=== PATIENT | male | born 1945 | race Caucasian/White ===

== ENCOUNTER 2017-02-25 12:26 | Observation (INO) | payer MEDICARE, OTHER ==
[~2017-02-25 12:26] MED LIST: ACTONEL; ACTONEL35 MG; ACTOS45 MG; ACTOS45 MG PO; ALTACE5 MG; AVELOX400 MG PO; BABY ASPIRIN81 MG PO; BACTRIM 400-801 EAC1 PO; BACTRIM DS TAB1 EAC2 PO; CLINDAMYCIN; CLINDAMYCIN HC300 M2 PO; COREG25 MG; COREG3.125 MG; COREG6.25 MG; CULTURELLE1 EAC1 PO; DOXYCYCLINE HY100 M5 PO; GLIPIZIDE XL2.5 MG; GLUCOTROL XL2.5 MG PO; GLYBURIDE2.5 MG; HUMALOG KW200 UNIT/1 SC; HUMALOG100 U/ML SQ; HUMALOG100 UNITS/ SC; LANTUS100 U/ML SC; LANTUS100 UNITS/ SC; LEVAQUIN500 M1 PO; LISINOPRIL2.5 MG; LOW DOSE ASPIRI81 M1 PO; LOW DOSE ASPIRI81 M3 PO; LYRICA50 MG; PLAVIX75 MG; PRAVACHOL20 M1 PO; PRAVACHOL20 MG PO; PRENATAL-U CAPS1 CAP PO; PROAMATINE10 MG; RENAGEL800 MG; RENAL CAPS SOFTG1 M1 PO; RENVELA800 M1 PO; RENVELA800 MG PO; SENSIPAR30 M1 PO; SENSIPAR30 MG; SENSIPAR30 MG PO; SULFAMYLON60 GM TOP; TOUJEO SOL300 UNIT/1 SC; TRAMADOL HCL50 M2 PO
[2017-02-25] MEDS ORDERED: TOUJEO SOL300 UNIT/1 SC (12:44)
[2017-02-25] MEDS ORDERED: KIONEX15 GM/601 PO (12:45)
[2017-02-25] MEDS ORDERED: SILVER SULFADI400 GM TP (12:46)
[2017-02-25] MEDS ORDERED: SANTYL30 G1 TP (12:46)
[2017-02-25] MEDS ORDERED: CYCLOBENZAPRINE5 M1 PO (12:50)
[2017-02-25] MEDS ORDERED: ULTRAM50 M1 PO (12:50)
[2017-02-25] MEDS ORDERED: HUMALOG KW200 UNIT/1 SC (13:03)
[2017-02-25 13:06] LABS: BASO % 0.4 % (0-2); EOS % 0.4 % (0-7); HCT-HEMATOCRIT 33.3 % (36.0-53.5); HGB-HEMOGLOBIN 10.8 gm/dl (13.5-17.0); IMMATURE GRANULOCYTES ABSOLUTE 0.08 tho/cmm (0-0.03); LYMPH % 15.6 % (20-45); LYMPH ABSOLUTE COUNT 1.2 tho/cmm (0.8-4.5); MCHC MEAN CORPUSCULAR HGB CONC 32.4 % (32.0-36.0); MCV (MEAN CELL VOLUME) 101.8 fl (82.0-96.0); MEAN PLATELET VOLUME 10.1 cmc (9.4-12.4); MONO % 8.7 % (0-12); MONOCYTE ABSOLUTE COUNT 0.7 tho/cmm (0.0-1.2); NEUTROPHIL ABSOLUTE COUNT 5.7 tho/cmm (1.6-8.0); NEUTROPHIL-AUTOMATED 5.7 tho/cmm (1.6-8.0); NEUTROPHILS % 73.9 % (40-80); PLATELET COUNT 153 tho/cmm (150-450); RED BLOOD COUNT 3.27 mil/cmm (4.40-5.70); RED CELL DISTRIBUTION WIDTH 13.9 % (12.4-16.4); WHITE BLOOD COUNT 7.7 tho/cmm (4.0-10.0)
[2017-02-25 13:08] LABS: INR 1.1 INR (0.9-1.1); PROTHROMBIN TIME 12.4 SECONDS (9.0-13.6)
[2017-02-25 13:38] LABS: ALB/GLOB RATIO 0.6 (0.8-2.0); ALBUMIN 3.1 g/dl (3.5-5.0); ALKALINE PHOSPHATASE 89 U/L (33-138); ALT/SGPT 11 U/L (12-78); ANION GAP 20 mmol/L (0-20); AST/SGOT 11 U/L (10-40); BILIRUBIN,TOTAL 0.4 mg/dl (0.0-1.5); BLOOD UREA NITROGEN 96 mg/dl (6-24); CALCIUM 6.7 mg/dl (8.5-10.5); CARBON DIOXIDE-VENOUS 23 mmol/L (22-32); CHLORIDE 100 mmol/l (96-110); CREATININE 7.51 mg/dl (0.60-1.30); GLUCOSE 112 mg/dL (70-110); POTASSIUM 5.6 mmol/L (3.7-5.1); SODIUM 137 mmol/L (135-145); eGFR VALUE FOR BLACK 8 mL/Min
[2017-02-25] MEDS ORDERED: ZEMPLAR2 MCG/ML IV (13:43)
[2017-02-25] MEDS ORDERED: ARANESP25 MCG/1 M IV (13:43)
[2017-02-25] MEDS ORDERED: VITAMIN D250000 UNI1 PO (13:44)
[2017-02-25] MEDS ORDERED: CARNITOR IV (13:45)
[2017-02-25] MEDS ORDERED: MIDODRINE HCL5 M1 PO (13:46)
[2017-02-25] MEDS ORDERED: TYLENOL EXTRA500 M1 PO (13:46)
[2017-02-25] MEDS ORDERED: HEPARIN IV ×2 (13:47→13:48)
[2017-02-26 05:38] LABS: BASO % 0.4 % (0-2); EOS % 1.1 % (0-7); EOSINOPHIL ABSOLUTE COUNT 0.1 tho/cmm (0.0-0.7); HCT-HEMATOCRIT 32.8 % (36.0-53.5); HGB-HEMOGLOBIN 10.6 gm/dl (13.5-17.0); IMMATURE GRANULOCYTES PERCENT 1.2 % (0-0.3); LYMPH ABSOLUTE COUNT 1.3 tho/cmm (0.8-4.5); MCH (MEAN CORPUSCULAR HGB) 32.8 pg (28.0-32.0); MCHC MEAN CORPUSCULAR HGB CONC 32.3 % (32.0-36.0); MCV (MEAN CELL VOLUME) 101.5 fl (82.0-96.0); MEAN PLATELET VOLUME 10.3 cmc (9.4-12.4); MONO % 11.1 % (0-12); MONOCYTE ABSOLUTE COUNT 0.9 tho/cmm (0.0-1.2); NEUTROPHIL ABSOLUTE COUNT 5.6 tho/cmm (1.6-8.0); NEUTROPHIL-AUTOMATED 5.6 tho/cmm (1.6-8.0); NEUTROPHILS % 70.2 % (40-80); PLATELET COUNT 149 tho/cmm (150-450); RED BLOOD COUNT 3.23 mil/cmm (4.40-5.70); RED CELL DISTRIBUTION WIDTH 13.8 % (12.4-16.4)
[2017-02-26 05:52] LABS: ANION GAP 17 mmol/L (0-20); BLOOD UREA NITROGEN 68 mg/dl (6-24); CALCIUM 6.6 mg/dl (8.5-10.5); CARBON DIOXIDE-VENOUS 26 mmol/L (22-32); CHLORIDE 97 mmol/l (96-110); CREATININE 5.88 mg/dl (0.60-1.30); GLUCOSE 156 mg/dL (70-110); MAGNESIUM 1.9 mg/dl (1.3-2.6); PHOSPHOROUS 7.3 mg/dl (2.5-4.9); POTASSIUM 4.8 mmol/L (3.7-5.1); SODIUM 135 mmol/L (135-145); eGFR VALUE FOR BLACK 10 mL/Min
[2017-02-28 04:47] LABS: BASO % 0.3 % (0-2); EOS % 2.2 % (0-7); EOSINOPHIL ABSOLUTE COUNT 0.2 tho/cmm (0.0-0.7); HCT-HEMATOCRIT 33.4 % (36.0-53.5); HGB-HEMOGLOBIN 10.8 gm/dl (13.5-17.0); IMMATURE GRANULOCYTES PERCENT 1.3 % (0-0.3); LYMPH % 19.2 % (20-45); LYMPH ABSOLUTE COUNT 1.5 tho/cmm (0.8-4.5); MCH (MEAN CORPUSCULAR HGB) 32.7 pg (28.0-32.0); MCHC MEAN CORPUSCULAR HGB CONC 32.3 % (32.0-36.0); MCV (MEAN CELL VOLUME) 101.2 fl (82.0-96.0); MEAN PLATELET VOLUME 9.9 cmc (9.4-12.4); MONO % 8.1 % (0-12); MONOCYTE ABSOLUTE COUNT 0.6 tho/cmm (0.0-1.2); NEUTROPHIL ABSOLUTE COUNT 5.4 tho/cmm (1.6-8.0); NEUTROPHIL-AUTOMATED 5.4 tho/cmm (1.6-8.0); NEUTROPHILS % 68.9 % (40-80); PLATELET COUNT 146 tho/cmm (150-450); RED CELL DISTRIBUTION WIDTH 13.9 % (12.4-16.4); WHITE BLOOD COUNT 7.8 tho/cmm (4.0-10.0)
[2017-02-28 05:24] LABS: ALBUMIN 2.7 g/dl (3.5-5.0); ANION GAP 17 mmol/L (0-20); BLOOD UREA NITROGEN 61 mg/dl (6-24); CALCIUM 6.7 mg/dl (8.5-10.5); CARBON DIOXIDE-VENOUS 25 mmol/L (22-32); CHLORIDE 99 mmol/l (96-110); CREATININE 5.31 mg/dl (0.60-1.30); GLUCOSE 183 mg/dL (70-110); PHOSPHOROUS 7.4 mg/dl (2.5-4.9); POTASSIUM 4.9 mmol/L (3.7-5.1); SODIUM 136 mmol/L (135-145); eGFR VALUE FOR BLACK 12 mL/Min
[2017-05-18] MEDS ORDERED: CULTURELLE1 EAC1 PO (15:48)
[2017-05-18] MEDS ORDERED: LOVENOX30 MG/0.1 SC (15:52)
[2017-05-18] MEDS ORDERED: LEVEMIR FL100 UNIT/2 SC (15:55)
[2017-05-18] MEDS ORDERED: GLUCOSE4 GM PO (16:02)
[2017-05-18] MEDS ORDERED: GLUCAGEN1 MG IM (16:03)
[2017-05-18] MEDS ORDERED: PROTONIX40 M2 PO (16:04)
[2017-05-18] MEDS ORDERED: NYSTATIN POWDER (16:05)
[2017-05-18] MEDS ORDERED: CALMOSEPTINE O3.5 G1 TP (16:06)
== END 2017-02-28 16:50 | disposition home health service (06) ==
LOC: EDMED 12:26 → CAR1 20:03
PROVIDERS: Emergency Medicine; Internal Medicine; Physician Assistant; ADMIT Hospitalist
DX: R53.1 Weakness (principal); E11.22 Type 2 diabetes mellitus with diabetic chronic kidney disease; I13.2 Hypertensive heart and chronic kidney disease with heart failure and with stage 5 chronic kidney disease, or end stage renal disease; I50.30 Unspecified diastolic (congestive) heart failure; N18.6 End stage renal disease; D63.1 Anemia in chronic kidney disease; E11.319 Type 2 diabetes mellitus with unspecified diabetic retinopathy without macular edema; E11.21 Type 2 diabetes mellitus with diabetic nephropathy; E11.40 Type 2 diabetes mellitus with diabetic neuropathy, unspecified; I48.91 Unspecified atrial fibrillation; E78.5 Hyperlipidemia, unspecified; E87.5 Hyperkalemia; G47.33 Obstructive sleep apnea (adult) (pediatric); I25.10 Atherosclerotic heart disease of native coronary artery without angina pectoris; E66.9 Obesity, unspecified; Z68.41 Body mass index [BMI] 40.0-44.9, adult; Z88.0 Allergy status to penicillin; Z88.5 Allergy status to narcotic agent; Z79.899 Other long term (current) drug therapy; Z99.2 Dependence on renal dialysis; Z98.890 Other specified postprocedural states
CPT/HCPCS: G0257; G0378; G8978-GP-CK; G8979-GP-CJ; G8980-GP-CJ; J0885; J1815; Q4081

== ENCOUNTER 2017-04-18 21:34 | Inpatient (IN) | payer MEDICARE, OTHER ==
[~2017-04-18 21:34] MED LIST changes: +ARANESP25 MCG/1 M IV; +CARNITOR IV; +CYCLOBENZAPRINE5 M1 PO; +HEPARIN IV; +KIONEX15 GM/601 PO; +MIDODRINE HCL5 M1 PO; +SANTYL30 G1 TP; +SILVER SULFADI400 GM TP; +TYLENOL EXTRA500 M1 PO; +ULTRAM50 M1 PO; +VITAMIN D250000 UNI1 PO; +ZEMPLAR2 MCG/ML IV
[2017-04-18 22:13] LABS: BASO % 0.1 % (0-2); HCT-HEMATOCRIT 31.7 % (36.0-53.5); HGB-HEMOGLOBIN 10.1 gm/dl (13.5-17.0); IMMATURE GRANULOCYTES ABSOLUTE 0.03 tho/cmm (0-0.03); IMMATURE GRANULOCYTES PERCENT 0.3 % (0-0.3); LYMPH % 6.8 % (20-45); LYMPH ABSOLUTE COUNT 0.6 tho/cmm (0.8-4.5); MCH (MEAN CORPUSCULAR HGB) 32.5 pg (28.0-32.0); MCHC MEAN CORPUSCULAR HGB CONC 31.9 % (32.0-36.0); MCV (MEAN CELL VOLUME) 101.9 fl (82.0-96.0); MEAN PLATELET VOLUME 10.4 cmc (9.4-12.4); MONO % 6.1 % (0-12); MONOCYTE ABSOLUTE COUNT 0.6 tho/cmm (0.0-1.2); NEUTROPHIL ABSOLUTE COUNT 8.1 tho/cmm (1.6-8.0); NEUTROPHIL-AUTOMATED 8.1 tho/cmm (1.6-8.0); NEUTROPHILS % 86.7 % (40-80); PLATELET COUNT 158 tho/cmm (150-450); RED BLOOD COUNT 3.11 mil/cmm (4.40-5.70); RED CELL DISTRIBUTION WIDTH 14.9 % (12.4-16.4); WHITE BLOOD COUNT 9.4 tho/cmm (4.0-10.0)
[2017-04-18 22:54] LABS: PROCALCITONIN 5.43 ng/ml (0.05-0.09)
[2017-04-18 23:54] LABS: ALB/GLOB RATIO 0.5 (0.8-2.0); ALBUMIN 2.4 g/dl (3.5-5.0); ALKALINE PHOSPHATASE 86 U/L (33-138); ALT/SGPT 19 U/L (12-78); ANION GAP 17 mmol/L (0-20); AST/SGOT 18 U/L (10-40); BILIRUBIN,TOTAL 0.6 mg/dl (0.0-1.5); BLOOD UREA NITROGEN 59 mg/dl (6-24); CALCIUM 7.4 mg/dl (8.5-10.5); CARBON DIOXIDE-VENOUS 26 mmol/L (22-32); CHLORIDE 97 mmol/l (96-110); CREATININE 6.86 mg/dl (0.60-1.30); GLUCOSE 257 mg/dL (70-110); POTASSIUM 5.8 mmol/L (3.7-5.1); SODIUM 134 mmol/L (135-145); eGFR VALUE FOR BLACK 9 mL/Min
[2017-04-19 01:12] LABS: INR 1.3 INR (0.9-1.1); PROTHROMBIN TIME 14.8 SECONDS (9.0-13.6)
[2017-04-19 01:26] LABS: C-REACTIVE PROTEIN 12.6 mg/dl (0-0.9); MAGNESIUM 1.6 mg/dl (1.8-2.6); PHOSPHOROUS 3.6 mg/dl (2.5-4.9)
[2017-04-19 01:30] LABS: TSH-THYROID STIMULATING HORM. 0.77 uIU/ml (0.40-3.80)
[2017-04-19 06:14] LABS: BASO % 0.2 % (0-2); EOS % 0.1 % (0-7); HCT-HEMATOCRIT 27.2 % (36.0-53.5); HGB-HEMOGLOBIN 8.7 gm/dl (13.5-17.0); IMMATURE GRANULOCYTES ABSOLUTE 0.03 tho/cmm (0-0.03); IMMATURE GRANULOCYTES PERCENT 0.4 % (0-0.3); LYMPH % 16.8 % (20-45); LYMPH ABSOLUTE COUNT 1.4 tho/cmm (0.8-4.5); MCH (MEAN CORPUSCULAR HGB) 32.5 pg (28.0-32.0); MCV (MEAN CELL VOLUME) 101.5 fl (82.0-96.0); MEAN PLATELET VOLUME 9.9 cmc (9.4-12.4); MONO % 7.8 % (0-12); MONOCYTE ABSOLUTE COUNT 0.7 tho/cmm (0.0-1.2); NEUTROPHIL ABSOLUTE COUNT 6.4 tho/cmm (1.6-8.0); NEUTROPHIL-AUTOMATED 6.4 tho/cmm (1.6-8.0); NEUTROPHILS % 74.7 % (40-80); PLATELET COUNT 130 tho/cmm (150-450); RED BLOOD COUNT 2.68 mil/cmm (4.40-5.70); RED CELL DISTRIBUTION WIDTH 15.1 % (12.4-16.4); WHITE BLOOD COUNT 8.5 tho/cmm (4.0-10.0)
[2017-04-19 07:01] LABS: ALB/GLOB RATIO 0.5 (0.8-2.0); ALBUMIN 2.2 g/dl (3.5-5.0); ALKALINE PHOSPHATASE 81 U/L (33-138); ALT/SGPT 16 U/L (12-78); ANION GAP 18 mmol/L (0-20); AST/SGOT 21 U/L (10-40); BILIRUBIN,DIRECT 0.2 mg/dl (0.0-0.3); BILIRUBIN,INDIRECT 0.3 mg/dL (0.0-1.0); BILIRUBIN,TOTAL 0.5 mg/dl (0.0-1.5); BLOOD UREA NITROGEN 61 mg/dl (6-24); C-REACTIVE PROTEIN 13.2 mg/dl (0-0.9); CALCIUM 7.1 mg/dl (8.5-10.5); CARBON DIOXIDE-VENOUS 24 mmol/L (22-32); CHLORIDE 100 mmol/l (96-110); CREATININE 6.87 mg/dl (0.60-1.30); GLUCOSE 202 mg/dL (70-110); POTASSIUM 5.7 mmol/L (3.7-5.1); SODIUM 136 mmol/L (135-145); eGFR VALUE FOR BLACK 9 mL/Min
[2017-04-19] MEDS ORDERED: HUMALOG KW200 UNIT/1 SC (10:41)
[2017-04-19] MEDS ORDERED: CLINDAMYCIN HC150 M1 PO (10:42)
[2017-04-19] MEDS ORDERED: TYLENOL EXTRA500 M1 PO (10:42)
[2017-04-19] MEDS ORDERED: FERRLECIT62.5 MG/5 IV (10:45)
[2017-04-19] MEDS ORDERED: ABX TP (10:58)
[2017-04-19 21:00] LABS: ALB/GLOB RATIO 0.4 (0.8-2.0); ALBUMIN 2.2 g/dl (3.5-5.0); ALKALINE PHOSPHATASE 79 U/L (33-138); ALT/SGPT 16 U/L (12-78); AST/SGOT 22 U/L (10-40); BILIRUBIN,TOTAL 0.5 mg/dl (0.0-1.5); CALCIUM 7.4 mg/dl (8.5-10.5); CARBON DIOXIDE-VENOUS 28 mmol/L (22-32); CHLORIDE 98 mmol/l (96-110); GLUCOSE 129 mg/dL (70-110); SODIUM 136 mmol/L (135-145); eGFR VALUE FOR BLACK 18 mL/Min
[2017-04-19 21:01] LABS: ANION GAP 14 mmol/L (0-20); BLOOD UREA NITROGEN 26 mg/dl (6-24); CREATININE 3.72 mg/dl (0.60-1.30); POTASSIUM 4.3 mmol/L (3.7-5.1)
[2017-04-19 21:13] LABS: PROCALCITONIN 12.84 ng/ml (0.05-0.09)
[2017-04-20 14:04] LABS: BASO % 0.3 % (0-2); EOS % 0.3 % (0-7); HCT-HEMATOCRIT 24.9 % (36.0-53.5); HGB-HEMOGLOBIN 7.8 gm/dl (13.5-17.0); IMMATURE GRANULOCYTES ABSOLUTE 0.04 tho/cmm (0-0.03); IMMATURE GRANULOCYTES PERCENT 0.7 % (0-0.3); LYMPH % 11.5 % (20-45); LYMPH ABSOLUTE COUNT 0.7 tho/cmm (0.8-4.5); MCHC MEAN CORPUSCULAR HGB CONC 31.3 % (32.0-36.0); MEAN PLATELET VOLUME 10.1 cmc (9.4-12.4); MONO % 13.8 % (0-12); MONOCYTE ABSOLUTE COUNT 0.9 tho/cmm (0.0-1.2); NEUTROPHIL ABSOLUTE COUNT 4.5 tho/cmm (1.6-8.0); NEUTROPHIL-AUTOMATED 4.5 tho/cmm (1.6-8.0); NEUTROPHILS % 73.4 % (40-80); PLATELET COUNT 117 tho/cmm (150-450); RED BLOOD COUNT 2.44 mil/cmm (4.40-5.70); RED CELL DISTRIBUTION WIDTH 15.4 % (12.4-16.4); WHITE BLOOD COUNT 6.2 tho/cmm (4.0-10.0)
[2017-04-20 14:07] LABS: ALBUMIN 2.2 g/dl (3.5-5.0); ANION GAP 15 mmol/L (0-20); BLOOD UREA NITROGEN 35 mg/dl (6-24); CALCIUM 6.7 mg/dl (8.5-10.5); CARBON DIOXIDE-VENOUS 26 mmol/L (22-32); CHLORIDE 102 mmol/l (96-110); CREATININE 4.59 mg/dl (0.60-1.30); GLUCOSE 154 mg/dL (70-110); PHOSPHOROUS 3.6 mg/dl (2.5-4.9); POTASSIUM 4.2 mmol/L (3.7-5.1); SODIUM 139 mmol/L (135-145); eGFR VALUE FOR BLACK 14 mL/Min
[2017-04-21 04:42] LABS: BASO % 0.2 % (0-2); EOS % 1.1 % (0-7); EOSINOPHIL ABSOLUTE COUNT 0.1 tho/cmm (0.0-0.7); HCT-HEMATOCRIT 24.3 % (36.0-53.5); HGB-HEMOGLOBIN 7.6 gm/dl (13.5-17.0); IMMATURE GRANULOCYTES ABSOLUTE 0.04 tho/cmm (0-0.03); IMMATURE GRANULOCYTES PERCENT 0.7 % (0-0.3); LYMPH % 12.9 % (20-45); LYMPH ABSOLUTE COUNT 0.7 tho/cmm (0.8-4.5); MCH (MEAN CORPUSCULAR HGB) 31.7 pg (28.0-32.0); MCHC MEAN CORPUSCULAR HGB CONC 31.3 % (32.0-36.0); MCV (MEAN CELL VOLUME) 101.3 fl (82.0-96.0); MEAN PLATELET VOLUME 10.2 cmc (9.4-12.4); MONO % 10.6 % (0-12); MONOCYTE ABSOLUTE COUNT 0.6 tho/cmm (0.0-1.2); NEUTROPHIL ABSOLUTE COUNT 4.2 tho/cmm (1.6-8.0); NEUTROPHIL-AUTOMATED 4.2 tho/cmm (1.6-8.0); NEUTROPHILS % 74.5 % (40-80); PLATELET COUNT 124 tho/cmm (150-450); RED CELL DISTRIBUTION WIDTH 15.2 % (12.4-16.4); WHITE BLOOD COUNT 5.7 tho/cmm (4.0-10.0)
[2017-04-21 04:57] LABS: ALB/GLOB RATIO 0.5 (0.8-2.0); ALBUMIN 2.1 g/dl (3.5-5.0); ALKALINE PHOSPHATASE 61 U/L (33-138); ALT/SGPT 13 U/L (12-78); BILIRUBIN,TOTAL 0.4 mg/dl (0.0-1.5); BLOOD UREA NITROGEN 38 mg/dl (6-24); CALCIUM 6.6 mg/dl (8.5-10.5); CARBON DIOXIDE-VENOUS 25 mmol/L (22-32); CHLORIDE 102 mmol/l (96-110); CREATININE 5.14 mg/dl (0.60-1.30); GLUCOSE 159 mg/dL (70-110); PHOSPHOROUS 4.9 mg/dl (2.5-4.9); SODIUM 137 mmol/L (135-145); eGFR VALUE FOR BLACK 12 mL/Min
[2017-04-21 05:08] LABS: ANION GAP 15 mmol/L (0-20); AST/SGOT 20 U/L (10-40); POTASSIUM 4.7 mmol/L (3.7-5.1)
[2017-04-21 05:54] LABS: PROCALCITONIN 15.53 ng/ml (0.05-0.09)
[2017-04-22 05:10] LABS: BASO % 0.5 % (0-2); EOS % 1.9 % (0-7); EOSINOPHIL ABSOLUTE COUNT 0.1 tho/cmm (0.0-0.7); HCT-HEMATOCRIT 27.9 % (36.0-53.5); HGB-HEMOGLOBIN 8.8 gm/dl (13.5-17.0); IMMATURE GRANULOCYTES ABSOLUTE 0.07 tho/cmm (0-0.03); IMMATURE GRANULOCYTES PERCENT 1.1 % (0-0.3); LYMPH % 17.3 % (20-45); LYMPH ABSOLUTE COUNT 1.1 tho/cmm (0.8-4.5); MCH (MEAN CORPUSCULAR HGB) 31.3 pg (28.0-32.0); MCHC MEAN CORPUSCULAR HGB CONC 31.5 % (32.0-36.0); MCV (MEAN CELL VOLUME) 99.3 fl (82.0-96.0); MEAN PLATELET VOLUME 10.1 cmc (9.4-12.4); MONO % 10.3 % (0-12); MONOCYTE ABSOLUTE COUNT 0.6 tho/cmm (0.0-1.2); NEUTROPHIL ABSOLUTE COUNT 4.3 tho/cmm (1.6-8.0); NEUTROPHIL-AUTOMATED 4.3 tho/cmm (1.6-8.0); NEUTROPHILS % 68.9 % (40-80); PLATELET COUNT 128 tho/cmm (150-450); RED BLOOD COUNT 2.81 mil/cmm (4.40-5.70); RED CELL DISTRIBUTION WIDTH 17.2 % (12.4-16.4); WHITE BLOOD COUNT 6.2 tho/cmm (4.0-10.0)
[2017-04-22 05:22] LABS: ALBUMIN 2.1 g/dl (3.5-5.0); BLOOD UREA NITROGEN 25 mg/dl (6-24); C-REACTIVE PROTEIN 14.2 mg/dl (0-0.9); CALCIUM 7.1 mg/dl (8.5-10.5); CARBON DIOXIDE-VENOUS 25 mmol/L (22-32); CHLORIDE 104 mmol/l (96-110); GLUCOSE 155 mg/dL (70-110); MAGNESIUM 1.6 mg/dl (1.8-2.6); PHOSPHOROUS 3.1 mg/dl (2.5-4.9); PREALBUMIN 9.1 mg/dl (20.0-40.0); SODIUM 140 mmol/L (135-145); eGFR VALUE FOR BLACK 18 mL/Min
[2017-04-22 05:36] LABS: ANION GAP 15 mmol/L (0-20); CREATININE 3.65 mg/dl (0.60-1.30); POTASSIUM 3.7 mmol/L (3.7-5.1)
[2017-04-22 05:43] LABS: PROCALCITONIN 12.23 ng/ml (0.05-0.09)
[2017-04-23 05:06] LABS: BASO % 1.1 % (0-2); BASO ABSOLUTE COUNT 0.1 tho/cmm (0.0-0.2); EOS % 3.4 % (0-7); EOSINOPHIL ABSOLUTE COUNT 0.3 tho/cmm (0.0-0.7); HCT-HEMATOCRIT 29.5 % (36.0-53.5); HGB-HEMOGLOBIN 9.3 gm/dl (13.5-17.0); IMMATURE GRANULOCYTES PERCENT 2.7 % (0-0.3); LYMPH % 15.3 % (20-45); LYMPH ABSOLUTE COUNT 1.1 tho/cmm (0.8-4.5); MCH (MEAN CORPUSCULAR HGB) 31.7 pg (28.0-32.0); MCHC MEAN CORPUSCULAR HGB CONC 31.5 % (32.0-36.0); MCV (MEAN CELL VOLUME) 100.7 fl (82.0-96.0); MEAN PLATELET VOLUME 9.9 cmc (9.4-12.4); MONO % 8.2 % (0-12); MONOCYTE ABSOLUTE COUNT 0.6 tho/cmm (0.0-1.2); NEUTROPHIL ABSOLUTE COUNT 5.2 tho/cmm (1.6-8.0); NEUTROPHIL-AUTOMATED 5.2 tho/cmm (1.6-8.0); NEUTROPHILS % 69.3 % (40-80); PLATELET COUNT 158 tho/cmm (150-450); RED BLOOD COUNT 2.93 mil/cmm (4.40-5.70); RED CELL DISTRIBUTION WIDTH 16.8 % (12.4-16.4); WHITE BLOOD COUNT 7.5 tho/cmm (4.0-10.0)
[2017-04-23 05:15] LABS: ANION GAP 13 mmol/L (0-20); C-REACTIVE PROTEIN 12.1 mg/dl (0-0.9); CALCIUM 7.3 mg/dl (8.5-10.5); CARBON DIOXIDE-VENOUS 27 mmol/L (22-32); CHLORIDE 104 mmol/l (96-110); GLUCOSE 176 mg/dL (70-110); PHOSPHOROUS 4.3 mg/dl (2.5-4.9); SODIUM 140 mmol/L (135-145); eGFR VALUE FOR BLACK 13 mL/Min
[2017-04-23 05:23] LABS: BLOOD UREA NITROGEN 40 mg/dl (6-24)
[2017-04-23 05:24] LABS: CREATININE 4.87 mg/dl (0.60-1.30)
[2017-04-24 03:35] LABS: BASO % 0.6 % (0-2); BASO ABSOLUTE COUNT 0.1 tho/cmm (0.0-0.2); EOSINOPHIL ABSOLUTE COUNT 0.2 tho/cmm (0.0-0.7); HCT-HEMATOCRIT 29.9 % (36.0-53.5); HGB-HEMOGLOBIN 9.3 gm/dl (13.5-17.0); IMMATURE GRANULOCYTES ABSOLUTE 0.26 tho/cmm (0-0.03); IMMATURE GRANULOCYTES PERCENT 3.4 % (0-0.3); LYMPH % 16.3 % (20-45); LYMPH ABSOLUTE COUNT 1.3 tho/cmm (0.8-4.5); MCH (MEAN CORPUSCULAR HGB) 31.3 pg (28.0-32.0); MCHC MEAN CORPUSCULAR HGB CONC 31.1 % (32.0-36.0); MCV (MEAN CELL VOLUME) 100.7 fl (82.0-96.0); MEAN PLATELET VOLUME 9.7 cmc (9.4-12.4); MONO % 6.1 % (0-12); MONOCYTE ABSOLUTE COUNT 0.5 tho/cmm (0.0-1.2); NEUTROPHIL ABSOLUTE COUNT 5.5 tho/cmm (1.6-8.0); NEUTROPHIL-AUTOMATED 5.5 tho/cmm (1.6-8.0); NEUTROPHILS % 70.6 % (40-80); PLATELET COUNT 173 tho/cmm (150-450); RED BLOOD COUNT 2.97 mil/cmm (4.40-5.70); RED CELL DISTRIBUTION WIDTH 16.5 % (12.4-16.4); WHITE BLOOD COUNT 7.7 tho/cmm (4.0-10.0)
[2017-04-24 03:49] LABS: ALBUMIN 2.1 g/dl (3.5-5.0); ANION GAP 12 mmol/L (0-20); BLOOD UREA NITROGEN 22 mg/dl (6-24); C-REACTIVE PROTEIN 7.7 mg/dl (0-0.9); CALCIUM 7.6 mg/dl (8.5-10.5); CARBON DIOXIDE-VENOUS 27 mmol/L (22-32); CHLORIDE 105 mmol/l (96-110); GLUCOSE 160 mg/dL (70-110); MAGNESIUM 1.8 mg/dl (1.8-2.6); SODIUM 140 mmol/L (135-145); eGFR VALUE FOR BLACK 19 mL/Min
[2017-04-24 03:56] LABS: CREATININE 3.52 mg/dl (0.60-1.30)
[2017-04-24 14:09] LABS: CREATINE PHOSPHOKINASE (CPK) 185 U/L (35-232)
[2017-04-24 14:28] LABS: CKMB 4.3 ng/ml (<3.6)
[2017-04-24 22:05] LABS: CREATINE PHOSPHOKINASE (CPK) 259 U/L (35-232)
[2017-04-24 22:08] LABS: CKMB 6.2 ng/ml (<3.6)
[2017-04-25 03:50] LABS: BASO % 0.2 % (0-2); HCT-HEMATOCRIT 28.3 % (36.0-53.5); HGB-HEMOGLOBIN 8.8 gm/dl (13.5-17.0); IMMATURE GRANULOCYTES ABSOLUTE 0.42 tho/cmm (0-0.03); IMMATURE GRANULOCYTES PERCENT 4.2 % (0-0.3); LYMPH % 5.4 % (20-45); LYMPH ABSOLUTE COUNT 0.5 tho/cmm (0.8-4.5); MCH (MEAN CORPUSCULAR HGB) 31.3 pg (28.0-32.0); MCHC MEAN CORPUSCULAR HGB CONC 31.1 % (32.0-36.0); MCV (MEAN CELL VOLUME) 100.7 fl (82.0-96.0); MEAN PLATELET VOLUME 9.6 cmc (9.4-12.4); MONO % 5.4 % (0-12); MONOCYTE ABSOLUTE COUNT 0.5 tho/cmm (0.0-1.2); NEUTROPHIL ABSOLUTE COUNT 8.5 tho/cmm (1.6-8.0); NEUTROPHIL-AUTOMATED 8.5 tho/cmm (1.6-8.0); NEUTROPHILS % 84.8 % (40-80); PLATELET COUNT 212 tho/cmm (150-450); RED BLOOD COUNT 2.81 mil/cmm (4.40-5.70); RED CELL DISTRIBUTION WIDTH 16.3 % (12.4-16.4)
[2017-04-25 04:03] LABS: ALBUMIN 2.1 g/dl (3.5-5.0); ANION GAP 16 mmol/L (0-20); C-REACTIVE PROTEIN 7.3 mg/dl (0-0.9); CALCIUM 7.3 mg/dl (8.5-10.5); CARBON DIOXIDE-VENOUS 23 mmol/L (22-32); CHLORIDE 103 mmol/l (96-110); POTASSIUM 4.7 mmol/L (3.7-5.1); SODIUM 137 mmol/L (135-145)
[2017-04-25 04:20] LABS: BLOOD UREA NITROGEN 36 mg/dl (6-24); CREATININE 4.58 mg/dl (0.60-1.30); GLUCOSE 311 mg/dL (70-110); PHOSPHOROUS 5.1 mg/dl (2.5-4.9); eGFR VALUE FOR BLACK 14 mL/Min
[2017-04-25 05:27] LABS: PROCALCITONIN 5.38 ng/ml (0.05-0.09)
[2017-04-26 04:28] LABS: HGB-HEMOGLOBIN 8.8 gm/dl (13.5-17.0); MCH (MEAN CORPUSCULAR HGB) 31.8 pg (28.0-32.0); MCHC MEAN CORPUSCULAR HGB CONC 31.4 % (32.0-36.0); MCV (MEAN CELL VOLUME) 101.1 fl (82.0-96.0); MEAN PLATELET VOLUME 9.6 cmc (9.4-12.4); NEUTROPHIL-AUTOMATED 7.4 tho/cmm (1.6-8.0); PLATELET COUNT 241 tho/cmm (150-450); RED BLOOD COUNT 2.77 mil/cmm (4.40-5.70); RED CELL DISTRIBUTION WIDTH 16.6 % (12.4-16.4)
[2017-04-26 04:40] LABS: ABG CO2 ARTERIAL 23 mmol/L (21-27); ARTERIAL BLD GAS O2 SATURATION 95 % (95-98); ARTERIAL BLOOD GAS PCO2 44 mmHg (32-45); ARTERIAL PO2 81 mmHg (70-100); BICARBONATE 21 mmol/L (21-28); BLOOD GAS BASE EXCESS -4 mM/L (-/+3)
[2017-04-26 07:22] LABS: BAND % 5 % (0-20); BAND ABSOLUTE COUNT 0.5 tho/cmm (0-2.0)
[2017-04-27 04:57] LABS: HCT-HEMATOCRIT 27.1 % (36.0-53.5); HGB-HEMOGLOBIN 8.7 gm/dl (13.5-17.0); MCH (MEAN CORPUSCULAR HGB) 32.5 pg (28.0-32.0); MCHC MEAN CORPUSCULAR HGB CONC 32.1 % (32.0-36.0); MCV (MEAN CELL VOLUME) 101.1 fl (82.0-96.0); MEAN PLATELET VOLUME 9.1 cmc (9.4-12.4); NEUTROPHIL-AUTOMATED 5.2 tho/cmm (1.6-8.0); PLATELET COUNT 209 tho/cmm (150-450); RED BLOOD COUNT 2.68 mil/cmm (4.40-5.70); RED CELL DISTRIBUTION WIDTH 17.1 % (12.4-16.4); WHITE BLOOD COUNT 8.1 tho/cmm (4.0-10.0)
[2017-04-27 04:58] LABS: BASO % 0.5 % (0-2); EOS % 1.9 % (0-7); EOSINOPHIL ABSOLUTE COUNT 0.2 tho/cmm (0.0-0.7); IMMATURE GRANULOCYTES ABSOLUTE 0.54 tho/cmm (0-0.03); IMMATURE GRANULOCYTES PERCENT 6.7 % (0-0.3); LYMPH % 18.4 % (20-45); LYMPH ABSOLUTE COUNT 1.5 tho/cmm (0.8-4.5); MONO % 8.3 % (0-12); MONOCYTE ABSOLUTE COUNT 0.7 tho/cmm (0.0-1.2); NEUTROPHIL ABSOLUTE COUNT 5.2 tho/cmm (1.6-8.0); NEUTROPHILS % 64.2 % (40-80)
[2017-04-27 05:16] LABS: ALBUMIN 2.1 g/dl (3.5-5.0); ANION GAP 12 mmol/L (0-20); BLOOD UREA NITROGEN 32 mg/dl (6-24); C-REACTIVE PROTEIN 6.8 mg/dl (0-0.9); CALCIUM 7.1 mg/dl (8.5-10.5); CARBON DIOXIDE-VENOUS 26 mmol/L (22-32); CHLORIDE 102 mmol/l (96-110); CREATININE 3.69 mg/dl (0.60-1.30); GLUCOSE 95 mg/dL (70-110); PHOSPHOROUS 3.5 mg/dl (2.5-4.9); POTASSIUM 3.9 mmol/L (3.7-5.1); SODIUM 136 mmol/L (135-145); eGFR VALUE FOR BLACK 18 mL/Min
[2017-04-27 06:48] LABS: PROCALCITONIN 6.03 ng/ml (0.05-0.09)
[2017-04-27] MEDS ORDERED: DEXTROSE 50%-WA50 M3 IV (15:26)
[2017-04-27] MEDS ORDERED: VANCOMYCIN HCL500 MG PO (15:30)
[2017-04-27] MEDS ORDERED: MIDODRINE HCL10 M1 PO (15:31)
[2017-04-27] MEDS ORDERED: LOVENOX30 MG/0.1 SC (15:32)
[2017-04-27] MEDS ORDERED: TYLENOL325 M2 PO (15:33)
[2017-04-27] MEDS ORDERED: ULTRAM50 M1 PO (15:33)
[2017-04-27] MEDS ORDERED: DULCOLAX10 MG PR (15:35)
[2017-04-27] MEDS ORDERED: MIRALAX17 G2 PO (15:35)
[2017-04-27] MEDS ORDERED: SENNA PLUS TAB1 EAC1 PO (15:36)
[2017-04-27] MEDS ORDERED: NOVOLOG FL100 UNIT/2 SC (15:40)
[2017-05-18] MEDS ORDERED: CULTURELLE1 EAC1 PO (15:48)
[2017-05-18] MEDS ORDERED: LOVENOX30 MG/0.1 SC (15:52)
[2017-05-18] MEDS ORDERED: LEVEMIR FL100 UNIT/2 SC (15:55)
[2017-05-18] MEDS ORDERED: GLUCOSE4 GM PO (16:02)
[2017-05-18] MEDS ORDERED: GLUCAGEN1 MG IM (16:03)
[2017-05-18] MEDS ORDERED: PROTONIX40 M2 PO (16:04)
[2017-05-18] MEDS ORDERED: NYSTATIN POWDER (16:05)
[2017-05-18] MEDS ORDERED: CALMOSEPTINE O3.5 G1 TP (16:06)
== END 2017-04-27 13:00 | DRG 853 ==
LOC: EDMED 21:34 → EMR2 04-19 01:13 → PCUB 04-19 18:45 → CCU 04-20 05:04 → ORW 04-20 16:15 → CCU 04-20 18:00 → ORE 04-24 07:38 → CCU 04-24 12:15
PROVIDERS: Emergency Medicine; Family Medicine; Internal Medicine; Internal Medicine Infectious Disease; Internal Medicine Pulmonary Disease; ADMIT Family Medicine
PROC: 0X6Q0Z3 Detachment at Right Middle Finger, Low, Open Approach (ICD-10-PCS; principal; 2017-04-19)
DX: A41.01 Sepsis due to Methicillin susceptible Staphylococcus aureus (principal); N18.6 End stage renal disease; I50.30 Unspecified diastolic (congestive) heart failure; I44.1 Atrioventricular block, second degree; E66.01 Morbid (severe) obesity due to excess calories; M97.02XA Periprosthetic fracture around internal prosthetic left hip joint, initial encounter; W19.XXXA Unspecified fall, initial encounter; R65.20 Severe sepsis without septic shock; E78.5 Hyperlipidemia, unspecified; D63.8 Anemia in other chronic diseases classified elsewhere; I48.91 Unspecified atrial fibrillation; I73.9 Peripheral vascular disease, unspecified; E11.9 Type 2 diabetes mellitus without complications; G47.33 Obstructive sleep apnea (adult) (pediatric); Y83.8 Other surgical procedures as the cause of abnormal reaction of the patient, or of later complication, without mention of misadventure at the time of the procedure; Y79.3 Surgical instruments, materials and orthopedic devices (including sutures) associated with adverse incidents; Y92.009 Unspecified place in unspecified non-institutional (private) residence as the place of occurrence of the external cause; Z99.2 Dependence on renal dialysis; Z79.82 Long term (current) use of aspirin
CPT/HCPCS: C1713; C1751; C8925; G0257; J0171; J0692; J0885; J1650; J1815; J1956; J2250; J2795; J3010; J3370; J7030; J7040; P9016; P9045